=== PATIENT | female | born 1975 | race Caucasian/White ===

== ENCOUNTER 2019-12-25 | Day surgery (SDC) | payer MEDICARE | END 2019-12-25 09:15 | disposition home or self-care (01) | DX: R10.32 Left lower quadrant pain (principal); D12.2 Benign neoplasm of ascending colon; D12.3 Benign neoplasm of transverse colon; K64.8 Other hemorrhoids; E11.9 Type 2 diabetes mellitus without complications; E03.9 Hypothyroidism, unspecified; F79 Unspecified intellectual disabilities; E66.9 Obesity, unspecified; Z68.31 Body mass index [BMI] 31.0-31.9, adult; Z90.710 Acquired absence of both cervix and uterus; Z79.4 Long term (current) use of insulin; Z79.899 Other long term (current) drug therapy | CPT/HCPCS: 00811; 36416; 45385; 82948; 88305; J3490; J7120 ==

== ENCOUNTER 2020-08-16 20:55 | Observation (INO) | payer MEDICARE ==
--- NOTE | 2020-08-16 21:08 | ED.PDOC ---
History of Present Illness - General Chief Complaint: Respiratory Problem Stated Complaint: cough and covid Time Seen by Provider: 08/16/20 20:57 Source: patient Exam Limitations: no limitations - History of Present Illness Initial Comments: The patient is a 45-year-old female brought in from the residential secondary to significantly increased cough some shortness of breath today as well. Patient also had a sore throat. She is also reporting some very mild suprapubic discomfort but no discharge. The patient is obese and does have insulin-dependent diabetes. No long-term history of chronic lung disease however. Patient does have chronic cognitive impairment. The patient did test positive for coronavirus at the residential. She is pleasant and cooperative. Mild increased work of breathing. Timing/Duration: other - Around 36 hours from symptom onset Severity: mild Improving Factors: nothing Worsening Factors: nothing Associated Symptoms: cough, malaise Allergies/Adverse Reactions: Allergies NO KNOWN ALLERGY Allergy (Verified 12/20/19 08:46) Home Medications: Ambulatory Orders Citalopram Hydrobromide 10 mg PO DAILY 12/20/19 Ferrous Sulfate 325 mg PO DAILY 12/20/19 Gemfibrozil 600 mg PO BID 12/20/19 Glimepiride 4 mg PO DAILY 12/20/19 Insulin Aspart [Novolog Flexpen] 100 unit SC TID 12/20/19 Insulin Degludec [Tresiba Flextouch] 80 unit SC DAILY 12/20/19 Levothyroxine Sodium [Synthroid] 100 mcg PO DAILY 12/20/19 Loratadine 10 mg PO DAILY 12/20/19 Metoprolol Succinate [Metoprolol Succinate ER] 50 mg PO DAILY 12/20/19 Milk Thistle (Silybum Marianum [Milk Thistle] 1,000 mg PO DAILY 12/20/19 Montelukast [Singulair] 10 mg PO DAILY 12/20/19 Canada-3 Fatty Acids [[place] 3] 1 cap PO DAILY 12/20/19 Omeprazole 20 mg PO DAILY 12/20/19 Potassium Chloride [K-Tab] 10 meq PO DAILY 12/20/19 Quetiapine Fumarate 50 mg PO DAILY 12/20/19 Risperidone 1 mg PO DAILY 12/20/19 Review of Systems - Review of Systems Constitutional: States: malaise EENTM: States: nose congestion, throat pain - Mild Respiratory: States: cough, short of breath - Mild Cardiology: States: no symptoms reported Gastrointestinal/Abdominal: States: no symptoms reported Genitourinary: States: no symptoms reported Musculoskeletal: States: no symptoms reported Skin: States: no symptoms reported Neurological: States: see HPI Endocrine: States: no symptoms reported All other Systems: No Change from Baseline Past Medical History (General) - Patient Medical History Hx Congestive Heart Failure: No Hx Diabetes: Yes Hx MRSA: No Family Medical History - Family History Mother Family History: Unknown Physical Exam - Physical Exam General Appearance: Alert, Comfortable, No apparent distress Eye Exam: bilateral normal Ears, Nose, Throat: hearing grossly normal, nasal congestion, pharyngeal erythema - Mild Neck: non-tender, supple Respiratory: lungs clear, normal breath sounds, no respiratory distress, no accessory muscle use Cardiovascular/Chest: normal peripheral pulses, no edema, other - Regular rate Peripheral Pulses: radial,right: 2+, radial,left: 2+ Gastrointestinal/Abdominal: non tender - Obese, soft Rectal Exam: deferred Back Exam: no vertebral tenderness Extremity: non-tender, no pedal edema, no calf tenderness, normal capillary refill 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 She apparently has poor long-term memory. Skin Exam: normal color Comments: Vital Signs - 24 hr 08/16/20 08/16/20 20:56 20:57 Temperature 97.3 F L Pulse Rate [ 101 H pulse ox] Respiratory 18 18 Rate Blood Pressure 118/68 [Right Arm] O2 Sat by Pulse 95 Oximetry Progress - Progress Progress: 08/16/20 22:25 The patient is a 45-year-old female sent up from the residential secondary to some shortness of breath and testing positive for coronavirus. The patient does have significant risk factors of insulin-dependent diabetes along with obesity. Oxygen saturations have ranged from 91 to 95% on room air. She does have mild increased work of breathing. The patient is being started on remdesivir, dexamethasone, azithromycin and Rocephin. Blood cultures are being done. The patient will be monitored overnight. Glucoses will have to be monitored fairly closely with the steroid usage. If the patient is not worsening over the next day or 2 then she will likely be able to go back to the residential. The patient is certainly high risk for rapid deterioration. Admit for continued care and monitoring. edyta brush [id number] - Results/Orders Results/Orders: Laboratory Tests 08/16/20 08/16/20 08/16/20 21:11 21:11 21:11 WBC 4.1 L RBC 4.19 L Hgb 12.2 Hct 36.0 MCV 86.0 MCH 29.1 MCHC 33.9 RDW 14.1 Plt Count 73 L MPV 8.6 Absolute Neuts (auto) 2.20 Absolute Lymphs (auto) 1.20 Absolute Monos (auto) 0.50 Absolute Eos (auto) 0.10 Absolute Basos (auto) 0.00 Neutrophils % 54.5 Lymphocytes % 30.2 Monocytes % 13.0 H Eosinophils % 1.6 Basophils % 0.7 PT 11.3 H INR 1.14 PTT (SP) 23.7 Fibrinogen 276 D-Dimer, Quantitative < 131.0 L Sodium 140 Potassium 3.5 L Chloride 103 Carbon Dioxide 25 Anion Gap 15.5 BUN < 6 L Creatinine 0.71 BUN/Creatinine Ratio 8.5 L Random Glucose 208 H Serum Osmolality 283.1 Lactic Acid Calcium 8.9 Magnesium 1.7 L Total Bilirubin 0.7 AST 68 H ALT 71 H Alkaline Phosphatase 70 LD Total 167 Creatine Kinase 255 H* CK-MB (CK-2) 2.6 CK-MB (CK-2) % Not Reportable Troponin I < 0.02 C-Reactive Protein 3.2 H B-Natriuretic Peptide < 15.0 Serum Total Protein 7.0 Albumin 4.1 Globulin 2.9 Albumin/Globulin Ratio 1.4 Urine Color Urine Appearance Urine pH Ur Specific [place] Urine Protein Urine Glucose (UA) Urine Ketones Urine Blood Urine Nitrite Urine Bilirubin Urine Urobilinogen Ur Leukocyte Esterase Urine RBC Urine WBC Ur Epithelial Cells Urine Bacteria 08/16/20 08/16/20 21:11 21:55 WBC RBC Hgb Hct MCV MCH MCHC RDW Plt Count MPV Absolute Neuts (auto) Absolute Lymphs (auto) Absolute Monos (auto) Absolute Eos (auto) Absolute Basos (auto) Neutrophils % Lymphocytes % Monocytes % Eosinophils % Basophils % PT INR PTT (SP) Fibrinogen D-Dimer, Quantitative Sodium Potassium Chloride Carbon Dioxide Anion Gap BUN Creatinine BUN/Creatinine Ratio Random Glucose Serum Osmolality Lactic Acid 2.5 H* Calcium Magnesium Total Bilirubin AST ALT Alkaline Phosphatase LD Total Creatine Kinase CK-MB (CK-2) CK-MB (CK-2) % Troponin I C-Reactive Protein B-Natriuretic Peptide Serum Total Protein Albumin Globulin Albumin/Globulin Ratio Urine Color Yellow Urine Appearance Sl cloudy Urine pH 7.0 Ur Specific [place] 1.015 Urine Protein Negative Urine Glucose (UA) 100 H Urine Ketones Negative Urine Blood Negative Urine Nitrite Negative Urine Bilirubin Negative Urine Urobilinogen 0.2 Ur Leukocyte Esterase Moderate H Urine RBC 0 Urine WBC 10-20 H Ur Epithelial Cells 5-10 Urine Bacteria Rare Chest pain shows mild bibasilar infiltrates. See report for details. EKG has significant motion artifact however it does appear to be normal sinus rhythm with a borderline normal R wave progression. Borderline QT prolongation. No definitive ST segment changes indicative of acute ischemia. There are mild scattered T wave inversions. Do not have previous for comparison. Rate is sinus tachycardia 102 bpm. Departure - Departure Clinical Impression: Pneumonia due to COVID-19 virus Disposition: Discharge to Home or Self Care Departure Forms: ED Discharge - Pt. Copy, Patient Portal Self Enrollment Referrals: Ranjeet Rosa MD [Primary Care Provider] - 1-2 Weeks Home Medications: Ambulatory Orders Citalopram Hydrobromide 10 mg PO DAILY 12/20/19 Ferrous Sulfate 325 mg PO DAILY 12/20/19 Gemfibrozil 600 mg PO BID 12/20/19 Glimepiride 4 mg PO DAILY 12/20/19 Insulin Aspart [Novolog Flexpen] 100 unit SC TID 12/20/19 Insulin Degludec [Tresiba Flextouch] 80 unit SC DAILY 12/20/19 Levothyroxine Sodium [Synthroid] 100 mcg PO DAILY 12/20/19 Loratadine 10 mg PO DAILY 12/20/19 Metoprolol Succinate [Metoprolol Succinate ER] 50 mg PO DAILY 12/20/19 Milk Thistle (Silybum Marianum [Milk Thistle] 1,000 mg PO DAILY 12/20/19 Montelukast [Singulair] 10 mg PO DAILY 12/20/19 Canada-3 Fatty Acids [Canada 3] 1 cap PO DAILY 12/20/19 Omeprazole 20 mg PO DAILY 12/20/19 Potassium Chloride [K-Tab] 10 meq PO DAILY 12/20/19 Quetiapine Fumarate 50 mg PO DAILY 12/20/19 Risperidone 1 mg PO DAILY 12/20/19 Decision To Admit - Decistion To Admit Decision to Admit Reason: Medical Nature Decision to Admit Date: 08/16/20 Decision to Admit Time: 22:26
--- NOTE | 2020-08-16 21:49 | RAD ---
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 No prior films are available for comparison. The lung volume is decreased. The heart is prominent with at this is related to decreased lung volume and/or mild cardiomegaly could be of consideration. The thoracic aorta is unremarkable. Questionable minimal ill-defined densities within the right and left lung base could correspond to atelectasis versus less likely early changes of Covid 19 pneumonia. Costophrenic angles are sharp. The rest of the soft tissue and bony structures demonstrate to be unremarkable. IMPRESSION: DECREASED LUNG VOLUME. QUESTIONABLE MILD CARDIOMEGALY AND/OR THE ACCENTUATION OF THE CARDIAC SILHOUETTE COULD BE RELATED TO DECREASED LUNG VOLUME. 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
[2020-08-16] MEDS ORDERED: DEXAMETHASONE INJ 4 MG/ML VIAL IV ONE (21:58)
[2020-08-16] MEDS ORDERED: AZITHROMYCIN IV 500 MG in SODIUM CHLORIDE 0.9% 250ML 250 ML IVPB ONE (21:58)
[2020-08-16] MEDS ORDERED: REMDESIVIR 200 MG ONE (22:04)
[2020-08-16] MEDS ORDERED: SODIUM CHLORIDE 0.9% 1000ML 500 ML IVS ONE (22:05)
[2020-08-16] MEDS ORDERED: SODIUM CHLORIDE 0.9% 250ML 250 ML ONE (22:06)
--- NOTE | 2020-08-16 23:09 | HP ---
SUPERVISING PHYSICIAN: Kalin Power MD CHIEF COMPLAINT: Cough, COVID positive and shortness of breath. HISTORY OF PRESENT ILLNESS: Ms. Barksdale is a 45-year-old female patient that resides at [facility] with a past medical history of diabetes and bipolar disorder with cognitive impairment. She presented to the Emergency Room with increasing shortness of breath with a cough and sore throat. She was also describing that she was having some pain in her suprapubic region. Her labs showed a white count of 4,100, hemoglobin 12.3, hematocrit 36.0. Differential was without a left shift. Coagulation studies showed a normal D- dimer. Chemistries showed just a mildly low potassium at 3.5. Lactic acid was elevated at 2.5. Magnesium was a little low at 1.7. CK was elevated at 255. C-reactive protein was 3.2. Troponin less than 0.02. Urinalysis did show a moderate leukocyte esterase with microscopic revealing 10 to 20 WBCs, 5 to 10 epithelials with rare bacteria. Cultures were completed including blood and urine. Chest x-ray revealed worsening interstitial airspace disease consistent with worsening COVID pneumonia. She was started on treatment for COVID pneumonia with Decadron, Remdesivir, azithromycin and Rocephin and provided breathing treatments. Her vital signs in the Emergency Room showed she was actually showing room air saturations around 95%, but shortly after admission and prior going to the floor, she was showing some room air saturations down to 92%. She is now going to be placed in observation for further monitoring and treatment regarding COVID pneumonia and urinary tract infection. The patient does have cognitive disabilities and limited history of present illness and review of systems secondary to that. Therefore, most of the history of present illness and review of systems was obtained from past medical records and Emergency Room records. PAST MEDICAL HISTORY: 1. Insulin dependent diabetes mellitus, type 2. 2. Moderate cognitive impairment. 3. Bipolar disorder. 4. Nonalcoholic steatohepatitis. PAST SURGICAL HISTORY: Unknown. HOME MEDICATIONS: We are awaiting an updated list in the medical records from the senior living. ALLERGIES: MILK PROTEIN. REVIEW OF SYSTEMS: Difficult to obtain due to the patient's mental capacity. CONSTITUTIONAL: She does note she has been having some general malaise. HEENT: Denies headaches, vision changes. She notes she has some nasal congestion with a mild sore throat. RESPIRATORY: Positive as noted in history of present illness for cough, shortness of breath. CARDIOVASCULAR: Negative for chest pain, palpitations or syncopal episodes. GASTROINTESTINAL: Negative for nausea, vomiting, diarrhea, constipation or abdominal pain. GENITOURINARY: As noted in history of present illness, some suprapubic pain. No reported discharge. MUSCULOSKELETAL: No reported joint swelling or arthralgias. SKIN: No reported lesions, rashes. She does have a chronic sacral stage 4 ulcer as noted on admission. NEUROLOGIC: As noted in history of present illness. HEMATOLOGIC: No mention of any unexplained bleeding, bruising or transfusion reactions. PHYSICAL EXAMINATION: VITAL SIGNS: Temperature 98, pulse 91, blood pressure 129/81, respirations 16, saturation 92% on room air. GENERAL: The patient is resting comfortably in no acute distress. HEENT: Tympanic membranes clear bilaterally. Oropharynx notably erythematous with no lesions. NECK: Supple, nontender with full range of motion. No jugular venous distention noted. RESPIRATORY: Lung sounds are just diminished towards the bases with no obvious rhonchi, wheezes or rales. CARDIOVASCULAR: Regular rate and rhythm without any appreciable murmurs, gallops, or rubs. ABDOMEN: Soft, nontender. Positive bowel sounds. Obese. RECTAL: Deferred. BACK: No vertebral or CVA tenderness. EXTREMITIES: There is no cyanosis, clubbing or edema. NEUROLOGIC: Cranial nerves II-XII are grossly intact. She seems to be alert to herself and knows she is in the hospital. SKIN: Warm, pink and dry. LABORATORY: CBC shows white count 4,100, hemoglobin 12.2, hematocrit 36.0, platelet count at 73,000. Differential is without a left shift currently. Coagulation studies show PT 11.3, PTT 23.7, fibrinogen 269. D-dimer less than 131. Chemistries show potassium a little low at 3.5, BUN less than 6, creatinine 0.71, glucose 208. Lactic acid a little elevated at 2.5, calcium 8.9, magnesium 1.7. Liver functions showing some elevation with AST 68, ALT 71. CK 255. Troponin less than 0.02. Initial C-reactive protein 3.2. Urinalysis showed 100 glucose, moderate amount of leukocytosis. Microscopic revealed 0 RBCs, 10 to 20 WBCs with 5 to 10 epithelials and rare bacteria. MICROBIOLOGY: Blood cultures and urine culture pending. COVID test was positive at the senior living. RADIOLOGY: Chest x-ray showed worsening interstitial airspace disease consistent with worsening COVID pneumonia. ASSESSMENT: 1. COVID pneumonia. 2. Insulin dependent diabetes mellitus, type 2. 3. Electrolyte imbalance including hypomagnesemia and hypokalemia. 4. History of nonalcoholic steatohepatitis. 5. Moderate cognitive impairment with bipolar disorder. PLAN: Ms. Barksdale is going to be placed in observation for close watching with COVID labs monitored. Given that she has high risk for complications due to her diabetes, we will start her on Remdesivir, Decadron, Rocephin and azithromycin for treatment of COVID. She will also be on albuterol inhalers. We will follow her labs closely and recheck an x-ray in the morning. Hopefully, if she stays stable and shows no signs of desaturation, we can discharge her back to [facility] or at least to their sister facility in [place]. Until then, we will hold off on Lovenox given her platelet count was 70,000 and she has a normal D-dimer. We will start her on some Protonix for gastric protection and on some Align. Until the patient can transition to outpatient management, we will continue to monitor and treat as needed. #[id number] [facility]
[2020-08-16] MEDS ORDERED: cefTRIAXone SODIUM 1 GM in SODIUM CHL 0.9% 50ML MIN-BAG+ 50 ML IVPB ONE (23:43)
[2020-08-16] MEDS ORDERED: GLUCAGON INJ 1 MG VIAL SUBCU PRN ×2 (23:44→23:50)
[2020-08-16] MEDS ORDERED: DEXTROSE 50% 25 GM/50 ML SYG IV PRN ×2 (23:44→23:50)
[2020-08-17] MEDS ORDERED: REMDESIVIR 200 MG in SODIUM CHLORIDE 0.9% 250ML 250 ML IVPB ONE ×2 (00:18→21:59)
[2020-08-17] MEDS ORDERED: ACETAMINOPHEN 325 MG TAB PO PRN (00:19)
[2020-08-17] MEDS ORDERED: SODIUM CHLORIDE 0.9% (FLUSH) 10 ML SYG IV PRN (00:19)
[2020-08-17] MEDS ORDERED: ONDANSETRON INJ 4 MG/2 ML VIAL IV PRN (00:19)
[2020-08-17] MEDS ORDERED: cefTRIAXone SODIUM 1 GM VIAL ONE ×2 (00:23→08:39)
[2020-08-17] MEDS ORDERED: SODIUM CHL 0.9% 50ML MIN-BAG+ 50 ML IVPB ONE (00:23)
[2020-08-17] MEDS ORDERED: IV SET AND CAP CHANGE INJ INJ SCH (00:30)
[2020-08-17] MEDS: ENOXAPARIN SODIUM 40 MG/0.4 ML SYG SUBCU SCH ×2 (00:37→20:55)
[2020-08-17] MEDS: guaiFENesin ER TAB 600 MG TAB PO SCH ×3 (00:37→20:54)
[2020-08-17] MEDS ORDERED: PANTOPRAZOLE SODIUM IV 40 MG VIAL IV SCH (06:30)
--- NOTE | 2020-08-17 07:05 | RAD ---
EXAM: XR Chest, 1 View CLINICAL HISTORY: covid TECHNIQUE: Frontal view of the chest. COMPARISON: 08/16/2020 FINDINGS: Lungs: There is worsening bilateral interstitial thickening and increased overlying airspace consolidation particularly in the medial right upper lobe. Pleural space: No pneumothorax or pleural effusion. Heart: Stable cardiac enlargement. Mediastinum: No abnormality noted. Bones/joints: No osseous destruction or sclerosis noted. IMPRESSION: Worsening interstitial and airspace disease consistent with worsening covid pneumonia. Electronically signed by: Melanie Luna MD 08/17/2020 7:04 AM STEAMFITTER APPRENTICE
[2020-08-17] MEDS ORDERED: AZITHROMYCIN IV 500 MG VIAL IVPB ONE (08:38)
[2020-08-17] MEDS: ALBUTEROL INHALER 64 PUFF/8GM INH SCH ×5 (08:57→21:15)
[2020-08-17] MEDS: BIFIDOBACTERIUM INFANTIS 4 MG CAP PO SCH ×2 (09:04→20:54)
[2020-08-17] MEDS: cefTRIAXone SODIUM 1 GM in SODIUM CHL 0.9% 50ML MIN-BAG+ 50 ML IVPB SCH (09:05)
[2020-08-17] MEDS: DEXAMETHASONE INJ 10 MG/ML VIAL IV SCH (09:05)
[2020-08-17] MEDS: SODIUM CHLORIDE 0.9% (FLUSH) 10 ML SYG IV SCH ×2 (09:06→20:54)
[2020-08-17] MEDS: AZITHROMYCIN IV 500 MG in SODIUM CHLORIDE 0.9% 250ML 250 ML IVPB SCH (09:09)
[2020-08-17] MEDS ORDERED: ALBUTEROL INHALER 64 PUFF/8GM INH ONE (09:31)
[2020-08-17] MEDS ORDERED: SODIUM CHLORIDE 0.9% 250ML 250 ML ONE (11:48)
[2020-08-17] MEDS ORDERED: REMDESIVIR 100 MG ONE (11:48)
[2020-08-17] MEDS: INSULIN LISPRO 100 UNITS/ML PEN SUBCU SCH ×4 (11:54→20:55)
[2020-08-17] MEDS: REMDESIVIR 100 MG in SODIUM CHLORIDE 0.9% 250ML 250 ML IVPB SCH (12:10)
[2020-08-17] MEDS ORDERED: ALBUTEROL INHALER 64 PUFF/8GM INH PRN (12:13)
[2020-08-17] MEDS: QUEtiapine FUMARATE 25 MG TAB PO SCH (14:12)
[2020-08-17] MEDS: METOPROLOL SUCCINATE XL 50 MG TAB PO SCH (14:12)
[2020-08-17] MEDS: risperiDONE 1 MG TAB PO SCH (14:12)
[2020-08-17] MEDS ORDERED: PANTOPRAZOLE SODIUM TAB 40 MG PO ONE (19:52)
[2020-08-17] MEDS ORDERED: LEVOTHYROXINE SODIUM 0.1 MG TAB ONE (19:52)
[2020-08-18] MEDS ORDERED: PANTOPRAZOLE SODIUM TAB 40 MG PO SCH (06:30)
[2020-08-18] MEDS ORDERED: LEVOTHYROXINE SODIUM 0.1 MG TAB PO SCH (06:30)
[2020-08-18] MEDS ORDERED: LORATADINE 10 MG TAB PO ONE (07:23)
[2020-08-18] MEDS ORDERED: MONTELUKAST 10 MG TAB ONE (07:24)
[2020-08-18] MEDS ORDERED: FERROUS SULFATE 325 MG TAB ONE (07:24)
[2020-08-18] MEDS ORDERED: POLYETHYLENE GLYCOL 3350 17 GM PCKT ONE (07:25)
[2020-08-18] MEDS ORDERED: FENOFIBRIC ACID 135 MG CAP ONE (07:25)
[2020-08-18] MEDS ORDERED: POTASSIUM CHLORIDE 10 MEQ TAB PO ONE (07:25)
[2020-08-18] MEDS: DEXAMETHASONE INJ 10 MG/ML VIAL IV SCH (08:18)
[2020-08-18] MEDS: METOPROLOL SUCCINATE XL 50 MG TAB PO SCH (08:19)
[2020-08-18] MEDS: cefTRIAXone SODIUM 1 GM in SODIUM CHL 0.9% 50ML MIN-BAG+ 50 ML IVPB SCH (08:19)
[2020-08-18] MEDS: BIFIDOBACTERIUM INFANTIS 4 MG CAP PO SCH (08:19)
[2020-08-18] MEDS: guaiFENesin ER TAB 600 MG TAB PO SCH (08:19)
[2020-08-18] MEDS: risperiDONE 1 MG TAB PO SCH (08:19)
[2020-08-18] MEDS: QUEtiapine FUMARATE 25 MG TAB PO SCH (08:19)
[2020-08-18] MEDS: SODIUM CHLORIDE 0.9% (FLUSH) 10 ML SYG IV SCH (08:20)
[2020-08-18] MEDS: ALBUTEROL INHALER 64 PUFF/8GM INH SCH ×2 (08:40→13:10)
[2020-08-18] MEDS: INSULIN LISPRO 100 UNITS/ML PEN SUBCU SCH ×2 (08:53→11:45)
[2020-08-18] MEDS: AZITHROMYCIN IV 500 MG in SODIUM CHLORIDE 0.9% 250ML 250 ML IVPB SCH (08:56)
[2020-08-18] MEDS ORDERED: POLYETHYLENE GLYCOL 3350 17 GM PCKT PO SCH (09:00)
[2020-08-18] MEDS ORDERED: FENOFIBRIC ACID 135 MG CAP PO SCH (09:00)
[2020-08-18] MEDS ORDERED: FERROUS SULFATE 325 MG TAB PO SCH (09:00)
[2020-08-18] MEDS ORDERED: MONTELUKAST 10 MG TAB PO SCH (09:00)
[2020-08-18] MEDS ORDERED: LORATADINE 10 MG TAB PO SCH (09:00)
[2020-08-18] MEDS ORDERED: POTASSIUM CHLORIDE 10 MEQ TAB PO SCH (09:00)
[2020-08-18] MEDS: REMDESIVIR 100 MG in SODIUM CHLORIDE 0.9% 250ML 250 ML IVPB SCH (11:13)
[2020-08-18 13:18] VITALS: BP 124/78; TEMP 98.4
[2020-08-18 14:02] VITALS: O2SAT 98
--- NOTE | 2020-08-21 08:59 | DS ---
SUPERVISING PHYSICIAN: Kalin Power MD ADMISSION DIAGNOSIS: 1. COVID pneumonia. 2. Insulin dependent diabetes mellitus, type 2. 3. Electrolyte imbalance including hypomagnesemia and hypokalemia. 4. History of nonalcoholic steatohepatitis. 5. Moderate cognitive impairment with bipolar disorder. DISCHARGE DIAGNOSIS: 1. COVID pneumonia. 2. Insulin dependent diabetes mellitus, type 2. 3. Electrolyte imbalance including hypomagnesemia and hypokalemia. 4. History of nonalcoholic steatohepatitis. 5. Moderate cognitive impairment with bipolar disorder. 6. Thrombocytopenia, etiology uncertain, but improving. Needs followup as an outpatient. REASON FOR HOSPITALIZATION: Ms. Barksdale is a 45-year-old female patient that resides at [facility] with a past medical history of diabetes and bipolar disorder with cognitive impairment. She presented to the Emergency Room with increasing shortness of breath with a cough and sore throat. She was also describing that she was having some pain in her suprapubic region. Her labs showed a white count of 4,100, hemoglobin 12.3, hematocrit 36.0. Differential was without a left shift. Coagulation studies showed a normal D- dimer. Chemistries showed just a mildly low potassium at 3.5. Lactic acid was elevated at 2.5. Magnesium was a little low at 1.7. CK was elevated at 255. C-reactive protein was 3.2. Troponin less than 0.02. Urinalysis did show a moderate leukocyte esterase with microscopic revealing 10 to 20 WBCs, 5 to 10 epithelials with rare bacteria. Cultures were completed including blood and urine. Chest x-ray revealed worsening interstitial airspace disease consistent with worsening COVID pneumonia. She was started on treatment for COVID pneumonia with Decadron, Remdesivir, azithromycin and Rocephin and provided breathing treatments. Her vital signs in the Emergency Room showed she was actually showing room air saturations around 95%, but shortly after admission and prior going to the floor, she was showing some room air saturations down to 92%. She is now going to be placed in observation for further monitoring and treatment regarding COVID pneumonia and urinary tract infection. The patient does have cognitive disabilities and limited history of present illness and review of systems secondary to that. Therefore, most of the history of present illness and review of systems was obtained from past medical records and Emergency Room records. LABORATORY: White count on discharge was 5,400, no shift on differential was noted. Hemoglobin 12.5, hematocrit 36.1, platelet count 86,000. Coagulation studies showed D-dimer less than 131. Normal PT/PTT. Fibrinogen normal. Chemistries at discharge showed normal electrolytes. Creatinine 0.58. Initial lactic acid was 2.5. Blood sugars ranged between 208 to 295. Liver function tests showed some elevation of AST at 58 and ALT 66. C-reactive protein 3.0 and at discharge was 3.7. Urinalysis showed moderate leukocyte esterase, 100 glucose, RBCs 0, WBCs 10 to 20, epithelials 5 to 10, bacteria rare. MICROBIOLOGY: Urine culture showed normal urogenital taj and multiple colonies indicating contamination. Blood cultures remained negative after 3 days. RADIOLOGY: Chest x-ray showed worsening interstitial and airspace disease consistent with worsening COVID pneumonia. 12-lead EKG showed sinus tachycardia, no obvious ST or T-wave changes to indicate acute ischemia. HOSPITAL COURSE: Ms. Barksdale was admitted on started on treatment for COVID pneumonia. She was treated with Remdesivir, azithromycin, Rocephin, Decadron, albuterol treatments and Lovenox. She was showing good clinical response to treatment and clinically stable enough to discharge back to the shelter. Her vital signs on discharge showed saturation of 98% on room air, blood pressure 124/78, heart rate 88, temperature 98.4. PLAN: Ms. Barksdale was discharged back to the nursing home facility in [place], [facility] of [facility], to their COVID unit. She was to continue diabetic diet as tolerated and activities as tolerated. MEDICATIONS PRESCRIBED ON DISCHARGE: 1. Align 4 mg twice daily, #30. 2. Decadron 6 mg, #8, no refills. 3. Cefdinir 300 mg twice daily, #10, no refills. 4. Albuterol inhaler 2 puffs as needed, #1 inhaler, no refills. 5. Azithromycin 500 mg, #3, no refills. She is to followup with Dr. Rosa. DISPOSITION: The patient was discharged to nursing home in [facility]. CONDITION ON DISCHARGE: Stable and improved. #[id number] [facility]
== END 2020-08-18 15:25 | disposition home or self-care (01) ==
LOC: ER 20:55 → MS 23:08
PROVIDERS: ADMIT Nurse Practitioner Acute Care; ATTEND Nurse Practitioner Family
DX: U07.1 COVID-19 (principal); J12.89 Other viral pneumonia; E11.9 Type 2 diabetes mellitus without complications; E87.8 Other disorders of electrolyte and fluid balance, not elsewhere classified; E83.42 Hypomagnesemia; E87.6 Hypokalemia; K75.81 Nonalcoholic steatohepatitis (NASH); G31.84 Mild cognitive impairment of uncertain or unknown etiology; F31.9 Bipolar disorder, unspecified; Z79.4 Long term (current) use of insulin; Z79.890 Hormone replacement therapy; Z79.899 Other long term (current) drug therapy; Z91.011 Allergy to milk products
CPT/HCPCS: 96366 ×2; 96367; 96365; 96375 ×2; 96376 ×2; 96372 ×2; J0696 ×3; J1100 ×3; J7030; J7050 ×9; J1650 ×2; J0456 ×3; A4216 ×3; J1815; 85379 ×3; 82553; 80053 ×2; 87086; 82948 ×6; 36415 ×2; 85384 ×3; 81001; 86140 ×3; 85025 ×3; 82550 ×2; 87040 ×2; 83615 ×3; 83735 ×3; 85730 ×2; 85610; 84484 ×2; 83880; 36416; 83605; 71045 ×2; 94664; 94640 ×5; 94762; 99285; 93005; G0378